=== PATIENT | female | born 1995 | race African-American/Black ===

== ENCOUNTER 2019-11-09 19:02 | Emergency (ER) | payer BC, OTHER ==
[~2019-11-09] VITALS: Ht 165.1 cm; Wt 63.5 kg
[2019-11-09] MEDS ORDERED: diphenhydrAMINE HCL 50 MG/ML VIAL ONE (19:12)
[2019-11-09] MEDS ORDERED: methylPREDNISolone SOD SUCC 125 MG/2ML VIAL ONE (19:12)
[2019-11-09] MEDS ORDERED: FAMOTIDINE/PF INJ 20 MG/2 ML VIAL IV ONE ×2 (19:13→19:30)
[2019-11-09] MEDS: ALBUTEROL FS 2.5 MG/0.5 ML VIAL.NEB NEB ONE ×2 (19:14→19:54)
[2019-11-09] MEDS ORDERED: ALBUTEROL FS 2.5 MG/0.5 ML VIAL.NEB ONE (19:15)
--- NOTE | 2019-11-09 19:21 | NUR ---
pt rec'd to er c/o swollen tongue was eatting a cookie it had peanuts in it she is allergic . took epi shot here iv started left ac 20g iv tolerated well . hx vertigo meds given per md orderAWAITING EVALUATION BY ER PROVIDER.
--- NOTE | 2019-11-09 19:24 | NUR ---
RT NOTES PT REFUSED BREATHING TX AT THIS TIME. RN AWARE. NO SOB NOTED.
[2019-11-09] MEDS ORDERED: methylPREDNISolone SOD SUCC 125 MG/2ML VIAL IV ONE (19:30)
[2019-11-09] MEDS ORDERED: diphenhydrAMINE HCL 50 MG/ML VIAL IV ONE (19:30)
--- NOTE | 2019-11-09 20:16 | NUR ---
OKSANA LLOYD AGACNPBC AT THE BED SIDE TO EVALUATE THE PT
--- NOTE | 2019-11-09 20:25 | NUR ---
Patient does not wish to proceed with medical care recommended by OKSANA LLOYD [facility]. Patient given information related to possible complications, up to and including , which could occur as a result of leaving the hospital at this time. Patient verbalizes understanding of risks involved due to leaving against medical advice. Patient has signed AMA form. IV removed. Catheter intact and site benign. Pressure and 4x4 applied to site. No bleeding noted. Patient discharged to home in stable condition. Written and verbal after care instructions given. Patient verbalizes understanding of instruction. pt was pickedup by her boyfriend. pt ambulated well w/ steady gaits w/ no distress upon D/C.
[2019-11-09 20:47] VITALS: BP 111/56
== END 2019-11-09 20:25 | disposition left against medical advice (07) ==
LOC: ER 19:05
DX: T78.2XXA Anaphylactic shock, unspecified, initial encounter (principal); Z88.1 Allergy status to other antibiotic agents; Z88.8 Allergy status to other drugs, medicaments and biological substances; Z88.6 Allergy status to analgesic agent
CPT/HCPCS: 96374; 96375; 99284; J1200; J2930; J3490